=== PATIENT | male | born 1975 | race Caucasian/White ===

== ENCOUNTER → 2019-10-23 12:52 | Outpatient (CLI) | payer OTHER, SELFPAY ==
[2019-10-23 17:53] LABS: Coronavirus 19 IgG Antibody Negative (Negative); Coronavirus 19 IgM Antibody Negative (Negative)
== END ==
PROVIDERS: PCP Family Medicine; Visit Provider Nurse Practitioner Family
DX: Z20.828 Contact with and (suspected) exposure to other viral communicable diseases (principal)
CPT/HCPCS: 36415; 86328

== ENCOUNTER 2024-12-17 09:11 | Day surgery (SDC) | payer BC, SELFPAY ==
--- NOTE | 2024-12-11 14:06 | SUR.PREOP ---
no answer when called for pre-op. detailed message and instructed patient to call back to speak with staff
--- NOTE | 2024-12-12 12:40 | EXP.HP ---
History of Present Illness *Admission Date: 12/17/24 *History of present illness: Mr. Bardales is a 49-year-old gentleman who is here for follow-up screening/surveillance colonoscopy. The patient did have a colonoscopy in December 2012 and had 2 diminutive polyps (tubular adenomas x 2) removed. His last colonoscopy with me in December 2017 revealed 2 diminutive polyps (tubular adenoma x 1/mucosal prolapse polyp x 1) which were removed. He does state that he has 2 paternal aunts with colon cancer. He does have a prior history of chronic constipation. The examination is deemed medically necessary for screening/surveillance colonoscopy. The patient has been seen, interviewed and examined prior to the procedure by both myself and the anesthesia provider. [facility] Disclaimer: The information contained in this section may have been updated after the patient was seen, as this information can be updated by other users. Medical History Hypertension Acid reflux Hypothyroid Diabetes Sleep apnea History of COVID-19 Surgical History History of myringotomy History of prostate surgery Hx of esophagogastroduodenoscopy Hx of colonoscopy History of repair of biceps tendon History of repair of rotator cuff Family History Other Colon cancer Prostate cancer Social History Smoking Status: Never smoker alcohol intake: current substance use type: denies use current occupational status: employed Travel in the last 8 weeks?: None caffeine: No Review of Systems Review of Systems Review of systems (narrative): Negative *Cardiovascular Comments: Negative *Gastrointestinal Comments: Negative *Genitourinary Comments: Negative *Musculoskeletal Comments: Negative *Neurologic Comments: Negative Meds Home Medications and Allergies Home Medications ?Medication ?Instructions ?Recorded ?Confirmed ?Type levothyroxine 25 mcg tablet 88 mcg PO DAILY thyroid 12/30/17 12/17/24 History lisinopril 10 mg tablet 40 mg PO DAILY blood pressure 12/30/17 12/17/24 History sodium,potassium,mag sulfates 17.5 See Rx Instructions PO .COMPLEX 12/06/24 12/17/24 Rx gram-3.13 gram-1.6 gram oral soln #354 mL (Suprep Bowel Prep Kit) amlodipine 5 mg tablet 5 mg PO DAILY 12/14/24 12/17/24 History fenofibrate 40 mg tablet 0 mg PO DAILY 12/14/24 12/17/24 History semaglutide 1 mg/dose (2 mg/1.5 1 mg SQ WEEKLY 12/14/24 12/17/24 History mL) subcutaneous pen injector New Prescriptions to Start Prescriptions: Allergies Allergy/AdvReac Type Severity Reaction Status Date / Time No Known Allergies Allergy Verified 12/17/24 10:15 Exam *Routine HEENT Exam Head: Present normocephalic Eye: Present EOMI and PERRL ENT: Present mucous membranes moist *Routine Neck Exam Neck: Present supple *Routine Respiratory Exam Respiratory: Present CTA bilaterally *Routine Cardiovascular Exam Cardiovascular: Present RRR *Routine Abdominal Exam Abdominal: Present soft and normoactive bowel sounds; Absent tenderness *Routine Rectal Exam Rectal:: deferred *Routine Genitalia Exam Genitalia:: deferred *Routine Extremities Exam Extremities: Absent cyanosis, clubbing or edema *Routine Skin Exam Skin: Present warm; Absent rash *Routine Neurological Exam Neurological: Present alert and oriented X3 Assessment and Plan *Assessment and plan (1) Personal history of adenomatous and serrated colon polyps: Status: Acute Category: Medical Code(s): Z86.0101 - Personal history of adenomatous and serrated colon polyps (2) Screening for colon cancer: Status: Acute Category: Medical Code(s): Z12.11 - Encounter for screening for malignant neoplasm of colon Plan A/P: 1. Personal history of adenomatous colon polyps is the preprocedural diagnosis. The patient will be anesthetized/sedated using MAC sedation. The patient has been seen and examined. Cardiac and lung assessment prior to the examination is stable. Proceed with planned screening/surveillance colonoscopy.
[2024-12-14 12:18] VITALS: BMI 35.4
--- NOTE | 2024-12-17 07:06 | HMH.PROCNOTE ---
[facility] Procedure Note Date: 12/17/24 Time: 10:50 Procedure Note:: Colonoscopy Procedure Report: Colonoscopy Endoscopist: Abdullahi Clark II, MD Referring physician: Justin Bustos M.D. Date of Procedure: December 17, 2024 Equipment: Olympus [id number] adult colonoscope Sedation: MAC sedation Indication: Mr. Bardales is a 49-year-old gentleman who is here for follow-up screening/surveillance colonoscopy. The patient did have a colonoscopy in December 2012 and had 2 diminutive polyps (tubular adenomas x 2) removed. His last colonoscopy with [facility] in December 2017 revealed 2 diminutive polyps (tubular adenoma x 1/mucosal prolapse polyp x 1) which were removed. He does state that he has 2 paternal aunts with colon cancer. The patient reports no abdominal pain, weight loss, change in his bowel habits or rectal bleeding. He does have a prior history of chronic constipation. The examination is deemed medically necessary for screening/surveillance colonoscopy. Procedure: Prior to the procedure, a history and physical exam was performed, and patient's medications and allergies were reviewed. The risks, benefits and alternatives of the sedation and procedure were discussed with the patient. All questions were answered and informed consent was obtained. The patient was brought to the procedure room. Patient identification and proposed procedure were verified by the physician and the nurse. The patient was placed in a left lateral decubitus position and the scope was passed under direct vision. Throughout the procedure, the patient's blood pressure, pulse, and oxygen saturations were monitored continuously. The colonoscopy was accomplished without difficulty. The patient tolerated the procedure well. Findings: On digital rectal examination there was normal rectal tone. There were no external hemorrhoids. The prostate was 2+, moderately firm but symmetric without nodules. The colonoscope was introduced through the anal canal to the rectum and advanced to the cecum. The ileocecal valve and appendiceal orifice were identified. The scope was advanced a short distance into the ileum which appeared grossly normal. The scope was then withdrawn into the colon. The cecum, ascending, transverse, descending, sigmoid and rectum were grossly normal. There were no mucosal abnormalities identified. Upon retroflexion within the rectum there were grade 2 internal hemorrhoids. The preparation was excellent throughout with [place] Preparation Score of 9. The cecal time was 12 minutes. Impression: 1. Normal colonoscopy with intubation of the terminal ileum 2. Grade 2 internal hemorrhoids Plan: The patient will not require screening/surveillance colonoscopy again for 10 years.
[2024-12-17 10:16] VITALS: BP 133/82; PULSE 76; RESP 18; TEMP 36.2; O2SAT 97
[2024-12-17 10:22] LABS: POC Glucose,Bedside 104 gm/dL (70-110)
--- NOTE | 2024-12-17 10:29 | EXP.ANES.CKL ---
[facility] Disclaimer: The information contained in this section may have been updated after the patient was seen, as this information can be updated by other users. Medical History Hypertension Acid reflux Hypothyroid Diabetes Sleep apnea History of COVID-19 Surgical History History of myringotomy History of prostate surgery Hx of esophagogastroduodenoscopy Hx of colonoscopy History of repair of biceps tendon History of repair of rotator cuff Family History Other Colon cancer Prostate cancer Social History Smoking Status: Never smoker alcohol intake: current substance use type: denies use current occupational status: employed Travel in the last 8 weeks?: None caffeine: No [facility] Anesthesia Checklist Patient Identification Patient Identification: Arm Band and Verbal (Name & ) Structural Data Admitted From: Home Planned Operative Procedure/s: colonoscopy Consent for Planned Operative Procedure(s) Verified: Yes Verified Documents: Surgical Consent NPO Status Verified Time NPO: 00:00 Chart Verification Results Verified: None Additional verifications Anesthesia Reactions: No Airway Assessment Mallampati Score:: Class II C-Spine Mobility Assessed: Yes TMJ Mobility Assessed: Yes Dentition: Good Dentition Neurological Assessment Level of Consciousness: Awake, Alert and Appropriate Hx Seizures: No Numbness or tingling in extremities: No Anesthesia Plan Anesthesia Risk discussed: Yes Anesthesia Plan: Verified ASA Class: II Anesthesia Type: MAC
[2024-12-17 10:53] VITALS: BP 115/65; PULSE 80; RESP 16; TEMP 36.1; O2SAT 91
[2024-12-17 11:03] VITALS: BP 121/77; PULSE 80; RESP 16; O2SAT 93
[2024-12-17 11:13] VITALS: BP 124/75; PULSE 81; RESP 16; O2SAT 98
[2024-12-17 11:23] VITALS: BP 121/80; PULSE 81; RESP 16; O2SAT 99
== END 2024-12-17 11:23 | disposition home or self-care (01) ==
PROVIDERS: PCP Family Medicine; Visit Provider Internal Medicine Gastroenterology
PROC: 0DJD8ZZ Inspection of Lower Intestinal Tract, Via Natural or Artificial Opening Endoscopic (ICD-10-PCS; CPT 45378; principal; 2024-12-17 11:00)
DX: Z12.11 Encounter for screening for malignant neoplasm of colon (principal); K64.1 Second degree hemorrhoids; Z86.0101 Personal history of adenomatous and serrated colon polyps; I10 Essential (primary) hypertension; E03.9 Hypothyroidism, unspecified; E11.9 Type 2 diabetes mellitus without complications; Z79.890 Hormone replacement therapy; Z79.85 Long-term (current) use of injectable non-insulin antidiabetic drugs; Z79.899 Other long term (current) drug therapy
CPT/HCPCS: 45378; 82962; J2003; J2704